=== PATIENT | male | born 1950 | race African-American/Black ===

== ENCOUNTER 2020-09-09 08:27 | Emergency (ER) | payer MEDICARE ==
[~2020-09-09] VITALS: Ht 180.3 cm; Wt 64.5 kg
--- NOTE | 2020-09-09 08:54 | ED.ADGEN ---
General Adult EDM: Chief Complaint: MECHANICAL FALL HPI: HPI: Patient is a 70 year old male who arrives ambulatory to the emergency department complaining of injuries sustained 2 days previously after slipping on the ice. Patient reportedly slipped on his right side Sunday morning and now has right-sided shoulder pain as well as right hip and knee pain. Patient states he tried to avoid coming to the emergency department however the pain has become an obstacle to completing his activities of daily living. Despite this he denies any head or neck trauma. He further denies any prodromal symptoms prior to falling or since that time. Moreover he was able to walk without assistance and can take his right shoulder throughout range of motion. He is awake, alert and nontoxic-appearing. Review of Systems: Review of Systems: Constitutional: Denies fever or chills. [] Eyes: Denies change in visual acuity. [] HENT: Denies nasal congestion or sore throat. [] Respiratory: Denies cough or shortness of breath. [] Cardiovascular: Denies chest pain or edema. [] GI: Denies abdominal pain, nausea, vomiting, bloody stools or diarrhea. [] : Denies dysuria. [] Musculoskeletal: Reports right shoulder pain, right hip pain and right knee pain. Denies back pain. [] Integument: Denies rash. [] Neurologic: Denies headache, focal weakness or sensory changes. [] Endocrine: Denies polyuria or polydipsia. [] Lymphatic: Denies swollen glands. [] Psychiatric: Denies depression or anxiety. [] Family History: Family History: Noncontributory Allergies: Allergies: Allergies Coded Allergies Type Severity Reaction Last Updated Verified No Known Drug Allergies 09/09/20 No Physical Exam: PE: Constitutional: Well developed, well nourished, no acute distress, non-toxic appearance. [] HENT: Normocephalic, atraumatic, bilateral external ears normal, oropharynx moist, no oral exudates, nose normal. [] Eyes: PERRLA, EOMI, conjunctiva normal, no discharge. [] Neck: Normal range of motion, no tenderness, supple, no stridor. [] Cardiovascular:Heart rate regular rhythm, no murmur [] Lungs & Thorax: Bilateral breath sounds clear to auscultation [] Abdomen: Bowel sounds normal, soft, no tenderness, no masses, no pulsatile masses. [] Skin: Warm, dry, no erythema, no rash. [] Back: No tenderness, no CVA tenderness. [] Extremities: Patient has minimal tenderness of the right shoulder posteriorly. There are no external signs of trauma present. Additionally the patient has minimal tenderness at the lateral aspect of his right hip. Again there are no external signs of trauma. Remainder the patient's musculoskeletal exam is within normal limits. no cyanosis, no clubbing, ROM intact, no edema. [] Neurologic: Alert and oriented X 3, normal motor function, normal sensory function, no focal deficits noted. [] Psychologic: Affect normal, judgement normal, mood normal. [] Current Patient Data: Vital Signs: Vital Signs Date Time Temp Pulse Resp B/P (MAP) Pulse Ox O2 Delivery O2 Flow Rate FiO2 09/09/20 08:48 97.5 65 18 159/89 (112) 97 Room Air 97.5 EKG: EKG: [] Heart Score: Risk Factors: Risk Factors: DM, Current or recent (<one month) smoker, HTN, HLP, family history of CAD, obesity. Risk Scores: Score 0 - 3: 2.5% MACE over next 6 weeks - Discharge Home Score 4 - 6: 20.3% MACE over next 6 weeks - Admit for Clinical Observation Score 7 - 10: 72.7% MACE over next 6 weeks - Early Invasive Strategies Radiology/Procedures: Radiology/Procedures: [] Impression: [facility] [address] [place] [address] IMAGING REPORT Signed PATIENT: FREDDY HERNANDEZ ACCOUNT: [id number] : 1950 LOCATION: ER AGE: 70 SEX: M EXAM STATUS: REG ER ORD. PHYSICIAN: HECTOR PINEDA DO REASON: Trauma PROCEDURE: HIP RIGHT 2V WITH PELVIS PROCEDURE: XR KNEE 3 VIEWS_RT, XR SHOULDER_RIGHT 2+ VIEWS, XR BILATERAL HIP (WITH OR WITHOUT PELVIS) 2 VIEWS_RIGHT STUDY DATE: 09/09/2020 CLINICAL INDICATION / HISTORY: Reason: Trauma / Spl. Instructions: / History: . TECHNIQUE: AP internal and external rotation views with a Y- view were obtained. COMPARISON: FINDINGS: No fracture, dislocation or bone destruction is identified. There are moderate degenerative changes at the right AC joint. No calcifications are seen in relation to the rotator cuff insertion. Soft tissues show density in the peripheral right lung apex projecting over the posterior right fourth rib, likely a calcified granuloma or bone island given its density is greater than the superimposed rib. IMPRESSION: 1. Moderate degenerative changes at the right acromioclavicular joint without fracture or malalignment shown. 2. Narrowing of the subacromial space could reflect rotator cuff pathology. MRI could help further evaluate if appropriate. PROCEDURE: XR KNEE 3 VIEWS_RT, XR SHOULDER_RIGHT 2+ VIEWS, XR BILATERAL HIP (WITH OR WITHOUT PELVIS) 2 VIEWS_RIGHT STUDY DATE: 09/09/2020 CLINICAL INDICATION / HISTORY: Reason: Trauma / Spl. Instructions: / History: . TECHNIQUE: Three views of the right hip were obtained. COMPARISON: None FINDINGS: The osseous structures are normally mineralized. There is normal bony alignment present with the femoral heads well-seated within the acetabuli. There is no evidence of acute fracture or dislocation identified. The overlying soft tissues are grossly unremarkable. IMPRESSION: Unremarkable examination of the right hip. PROCEDURE: XR KNEE 3 VIEWS_RT, XR SHOULDER_RIGHT 2+ VIEWS, XR BILATERAL HIP (WITH OR WITHOUT PELVIS) 2 VIEWS_RIGHT STUDY DATE: 09/09/2020 CLINICAL INDICATION / HISTORY: Reason: Trauma / Spl. Instructions: / History: . TECHNIQUE: AP, lateral, and oblique views of the right knee. COMPARISON: None FINDINGS: The osseous structures are intact. The articular surfaces are smooth. The medial compartment shows mild joint space narrowing and subtle osteophytic spurring on the medial tibial plateau. The lateral compartment shows a large, 1.8 cm subchondral cyst in the lateral tibial plateau, presumptive evidence of degenerative change. No intra-articular loose bodies. The alignment is within normal limits. The soft tissues are unremarkable. No obvious joint effusion. No radio-opaque foreign bodies are identified. IMPRESSION: Medial and lateral compartment degenerative changes. No fracture, malalignment or aggressive osseous lesions. Electronically signed by: Nathaniel Pruitt MD (09/09/2020 9:41 AM) [id number] DICTATED and SIGNED BY: NATHANIEL PRUITT MD DATE: 09/09/20 [id number] Course & Med Decision Making: Course & Med Decision Making Pertinent Labs and Imaging studies reviewed. (See chart for details) [] Dragon Disclaimer: Dragon Disclaimer: This electronic medical record was generated, in whole or in part, using a voice recognition dictation system. Departure Departure Impression: Primary Impression: Accidental fall Additional Impressions: Right shoulder strain Contusion of right hip Strain of right knee Disposition: 01 DC HOME SELF CARE/HOMELESS Condition: STABLE Referrals: TRICIA NEGRON MD (PCP) Patient Instructions: Combined Knee Ligament Sprain-SportsMed, Contusion, Fall Prevention and Home Safety, Rotator Cuff Injury Problem Qualifiers HECTOR PNIEDA DO Sep 09, 2020 08:54
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
[2020-09-09 09:50] VITALS: BP 127/72
[2020-09-09] MEDS ORDERED: HYDR-2761 PO (09:53)
== END 2020-09-09 10:15 | disposition home or self-care (01) ==
LOC: ER 08:27
DX: S46.811A Strain of other muscles, fascia and tendons at shoulder and upper arm level, right arm, initial encounter (principal); S76.811A Strain of other specified muscles, fascia and tendons at thigh level, right thigh, initial encounter; S70.01XA Contusion of right hip, initial encounter; W00.0XXA Fall on same level due to ice and snow, initial encounter; Y93.89 Activity, other specified; Y92.89 Other specified places as the place of occurrence of the external cause; Y99.8 Other external cause status
CPT/HCPCS: 73030; 73502; 73562; 99284

== ENCOUNTER 2020-10-25 18:33 | Emergency (ER) | payer OTHER, MEDICARE ==
[~2020-10-25] VITALS: Ht 180.3 cm; Wt 64.9 kg
[~2020-10-25 18:33] MED LIST: HYDR-2761 PO
[2020-10-25] MEDS ORDERED: HYDROcodone/APAP 5/325MG 1 TAB TABLET PO ONE (22:00)
[2020-10-25] MEDS ORDERED: NOREPINEPHRINE VIAL 8 MG in IV DEXTROSE 5% 250 ML IV ONE (22:00)
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
[2020-10-25] MEDS ORDERED: TRAM-48 PO (23:26)
[2020-10-25] MEDS ORDERED: CYCL10TA2 PO (23:26)
== END 2020-10-26 | disposition home or self-care (01) ==
LOC: ER 18:33
DX: S16.1XXA Strain of muscle, fascia and tendon at neck level, initial encounter (principal); M25.531 Pain in right wrist; R41.0 Disorientation, unspecified; R42 Dizziness and giddiness; E78.00 Pure hypercholesterolemia, unspecified; I10 Essential (primary) hypertension; V98.8XXA Other specified transport accidents, initial encounter; Y93.89 Activity, other specified; Y92.89 Other specified places as the place of occurrence of the external cause; Y99.8 Other external cause status
CPT/HCPCS: 70450; 72125; 73110; 99285